=== PATIENT | male | born 1990 | race Caucasian/White ===

== ENCOUNTER 2020-03-17 18:30 | Emergency (ER) | payer SELFPAY ==
[~2020-03-17 18:30] MED LIST: Iopamidol-370 76% 500 ML 1 ML ONE
[2020-03-17 19:18] LABS: #Basophils 0.1 thou/uL (0.0-0.2); #Lymphocytes 2.1 thou/uL (1.20-3.40); #Monocytes 0.6 thou/uL (0.11-0.59); #Neutrophils 6.9 thou/uL (1.40-6.50); %Basophils 0.8 % (0.0-1.0); %Eosinophils 0.5 % (0.0-10.0); %Lymphocytes 21.6 % (21.0-51.0); %Monocytes 6.5 % (0.0-10.0); %Neutrophils 70.7 % (42.0-75.0); Hemoglobin 15.6 g/dL (14.0-18.0); Mean Corpuscular HGB CONC 34.4 g/dL (32.0-36.0); Mean Corpuscular Hemoglobin 30.1 pg (27.0-31.0); Mean Corpuscular Volume 87.3 fL (78.0-98.0); Mean Platelet Volume 7.2 fL (7.4-10.4); Platelet Count 188 thou/uL (130-400); RBC Distribution Width 12.2 % (11.5-14.5); Red Blood Cell (RBC) Count 5.18 mill/uL (4.70-6.10); White Blood Cell (WBC) Count 9.7 thou/uL (4.8-10.8)
--- NOTE | 2020-03-17 19:32 | RAD ---
PORTABLE CHEST: 03/17/20 HISTORY: Chest pain. Lung randolph are clear. Vasculature normal. Heart and mediastinum normal. IMPRESSION: No acute process. POS: AGW
[2020-03-17 19:38] LABS: ALT (SGPT) 27 U/L (8-55); AST (SGOT) 29 U/L (5-34); Albumin 4.7 g/dL (3.5-5.0); Alkaline Phosphatase 77 U/L (40-110); Anion Gap 15 mmol/L (10-20); BUN (Urea Nitrogen) 14 mg/dL (8.9-20.6); Bilirubin, Total 0.7 mg/dL (0.2-1.2); Calc. Creatinine Clearance 0 mL/min (70-130); Calcium 9.9 mg/dL (7.8-10.44); Carbon Dioxide 24 mmol/L (22-29); Chloride 100 mmol/L (98-107); Estimated GFR-MDRD Greater than 90; Glucose 128 mg/dL (70-105); Potassium 3.7 mmol/L (3.5-5.1); Protein, Total 7.7 g/dL (6.0-8.3); Sodium 135 mmol/L (136-145)
--- NOTE | 2020-03-17 19:48 | CT ---
Exam: Head CT without contrast HISTORY: Headache. Intermittent blurred vision COMPARISON: none FINDINGS: Hemorrhage: No intraparenchymal hemorrhage or extra-axial hematoma. Brain parenchyma: Cortical naidu-white matter differentiation is preserved. No mass effect or midline shift. Basilar cisterns are patent. Ventricular system: Ventricles and sulci are patent and symmetric. Calvarium: Intact. Sinuses and mastoid air cells: Adequate aeration. IMPRESSION: No acute intracranial process.
--- NOTE | 2020-03-17 20:09 | CT ---
CT CHEST, ABDOMEN AND PELVIS WITH IV CONTRAST: 03/17/20 INDICATIONS: Pain. Nausea, vomiting. Weight loss. Blurred vision. Comparison made to a prior CT abdomen and pelvis from 2014. CT CHEST: Lung randolph are clear. There is no evidence of infiltrate or effusion. No pulmonary mass or nodule. T he mediastinum is unremarkable. Osseous structures unremarkable. IMPRESSION: Unremarkable CT chest. CT ABDOMEN AND PELVIS: Liver, spleen, pancreas, stomach and duodenum unremarkable. Adrenal glands normal. Kidneys unremarkable. Small bowel loops appear normal. Appendix not identified. Radiopaque suture at the cecum suggests kelsey or appendectomy. Colon is unremarkable by CT. Aorta normal caliber. No adenopathy. No free fluid. Images through the pelvis show mildly distended bladder. Prostate unremarkable. Osseous structures un remarkable. IMPRESSION: Unremarkable CT abdomen and pelvis. POS: AGW
[2020-03-17 20:40] LABS: Bilirubin Negative (Negative); Blood, Urine Negative (Negative); Clarity Clear (Clear); Glucose, Urine (Dipstick) Normal (Negative); Ketone, Urine Negative (Negative); Leukocyte Negative Leu/uL (Negative); Nitrite Negative (Negative); Protein, Urine (Dipstick) Negative (Neg-Trace); Urobilinogen Normal mg/dL (Less than 2); pH, Urine 7.5 (5.0-9.0)
[2020-03-17 20:41] LABS: Specific Gravity, Urine 1.062 (1.002-1.036)
[2020-03-17 20:53] LABS: Amphetamine Not Detected (NotDetected); Barbiturates Screen Not Detected (NotDetected); Benzodiazepine Screen Not Detected (NotDetected); Cocaine Metabolite Screen Not Detected (NotDetected); Medtox Control Line Valid? VALID (VALID); Medtox Reader # READER 4; Methadone Not Detected (NotDetected); Methamphetamine Not Detected (NotDetected); Opiate Screen Not Detected (NotDetected); Oxycodone Screen Not Detected (NotDetected); Phencyclidine (PCP) Not Detected (NotDetected); THC/Cannabinoid Screen Detected (NotDetected); Tricyclic Screen Not Detected (NotDetected)
== END 2020-03-17 21:30 | disposition home or self-care (01) ==
LOC: ERS 18:30
DX: R63.4 Abnormal weight loss (principal); H53.8 Other visual disturbances; R51 Headache; R10.11 Right upper quadrant pain; S80.01XA Contusion of right knee, initial encounter; F12.90 Cannabis use, unspecified, uncomplicated; K21.9 Gastro-esophageal reflux disease without esophagitis; F43.10 Post-traumatic stress disorder, unspecified; F41.9 Anxiety disorder, unspecified; F32.9 Major depressive disorder, single episode, unspecified; F17.220 Nicotine dependence, chewing tobacco, uncomplicated; Z79.899 Other long term (current) drug therapy
CPT/HCPCS: 36416; 70450; 71045; 71260; 74177; 80053; 80306; 81003; 84443; 85025; Q9967

== ENCOUNTER 2020-03-26 12:34 | Emergency (ER) | payer OTHER, SELFPAY ==
[2020-03-26] MEDS ORDERED: Ketorolac Tromethamine 30 MG/ML VIAL ONE (13:44)
[2020-03-26] MEDS ORDERED: chlordiazePOXIDE HCl 25 MG CAP ONE ×2 (13:44→18:51)
[2020-03-26 14:10] LABS: #Basophils 0.2 thou/uL (0.0-0.2); #Lymphocytes 2.8 thou/uL (1.20-3.40); #Monocytes 0.5 thou/uL (0.11-0.59); #Neutrophils 3.7 thou/uL (1.40-6.50); %Basophils 2.3 % (0.0-1.0); %Eosinophils 0.3 % (0.0-10.0); %Lymphocytes 38.9 % (21.0-51.0); %Neutrophils 51.5 % (42.0-75.0); Mean Corpuscular HGB CONC 34.7 g/dL (32.0-36.0); Mean Corpuscular Hemoglobin 30.7 pg (27.0-31.0); Mean Corpuscular Volume 88.5 fL (78.0-98.0); Mean Platelet Volume 6.8 fL (7.4-10.4); Platelet Count 272 thou/uL (130-400); RBC Distribution Width 12.1 % (11.5-14.5); White Blood Cell (WBC) Count 7.2 thou/uL (4.8-10.8)
[2020-03-26 14:31] LABS: ALT (SGPT) 94 U/L (8-55); AST (SGOT) 189 U/L (5-34); Acetaminophen Less than 6.0 mcg/mL (10.0-30.0); Albumin 4.6 g/dL (3.5-5.0); Alcohol 350 mg/dL (Less than 10); Alkaline Phosphatase 89 U/L (40-110); Anion Gap 15 mmol/L (10-20); BUN (Urea Nitrogen) 9 mg/dL (8.9-20.6); Bilirubin, Total 0.3 mg/dL (0.2-1.2); Calc. Creatinine Clearance 0 mL/min (70-130); Calcium 9.2 mg/dL (7.8-10.44); Carbon Dioxide 31 mmol/L (22-29); Chloride 102 mmol/L (98-107); Estimated GFR-MDRD Greater than 90; Glucose 94 mg/dL (70-105); Potassium 3.8 mmol/L (3.5-5.1); Protein, Total 7.6 g/dL (6.0-8.3); Salicylate Less than 8.0 mg/dL (15.0-30.0); Sodium 144 mmol/L (136-145)
[2020-03-26 14:49] LABS: CK (CPK) 5113 U/L (30-200)
[2020-03-26] MEDS ORDERED: diphenhydrAMINE 50 MG/ML VIAL ONE (18:51)
[2020-03-26] MEDS ORDERED: Haloperidol Lactate 5 MG/ML VIAL ONE (19:03)
[2020-03-26 19:09] LABS: Magnesium 1.7 mg/dL (1.6-2.6)
[2020-03-26 19:23] LABS: Bilirubin Negative (Negative); Blood, Urine Negative (Negative); Clarity Clear (Clear); Glucose, Urine (Dipstick) Normal (Negative); Ketone, Urine Negative (Negative); Leukocyte Negative Leu/uL (Negative); Nitrite Negative (Negative); Protein, Urine (Dipstick) Negative (Neg-Trace); Specific Gravity, Urine 1.008 (1.002-1.036); Urobilinogen Normal mg/dL (Less than 2)
[2020-03-26 19:36] LABS: Amphetamine Not Detected (NotDetected); Barbiturates Screen Not Detected (NotDetected); Benzodiazepine Screen Not Detected (NotDetected); Cocaine Metabolite Screen Detected (NotDetected); Medtox Control Line Valid? VALID (VALID); Medtox Reader # READER 1; Methadone Not Detected (NotDetected); Methamphetamine Not Detected (NotDetected); Opiate Screen Not Detected (NotDetected); Oxycodone Screen Not Detected (NotDetected); Phencyclidine (PCP) Not Detected (NotDetected); THC/Cannabinoid Screen Detected (NotDetected); Tricyclic Screen Not Detected (NotDetected)
== END 2020-03-26 23:00 ==
LOC: ERS 12:34
DX: F10.239 Alcohol dependence with withdrawal, unspecified (principal); Y90.8 Blood alcohol level of 240 mg/100 ml or more; M62.82 Rhabdomyolysis; K21.9 Gastro-esophageal reflux disease without esophagitis; F41.9 Anxiety disorder, unspecified; F32.9 Major depressive disorder, single episode, unspecified; F43.10 Post-traumatic stress disorder, unspecified; Z79.899 Other long term (current) drug therapy
CPT/HCPCS: 36415; 80053; 80306; 80307; 81003; 82550; 83690; 83735; 84443; 85025; 93005; 96361; 96374; 96375; J1200; J1630; J1885

== ENCOUNTER 2020-06-27 22:35 | Emergency (ER) | payer OTHER, SELFPAY ==
[2020-06-28] MEDS ORDERED: Lorazepam 2 MG/ML VIAL ONE ×2 (00:55→01:05)
[2020-06-28 01:32] LABS: #Basophils 0.1 thou/uL (0.0-0.2); #Lymphocytes 2.1 thou/uL (1.20-3.40); #Monocytes 0.7 thou/uL (0.11-0.59); #Neutrophils 3.8 thou/uL (1.40-6.50); %Basophils 1.9 % (0.0-1.0); %Eosinophils 0.7 % (0.0-10.0); %Lymphocytes 30.6 % (21.0-51.0); %Monocytes 10.4 % (0.0-10.0); %Neutrophils 56.4 % (42.0-75.0); Hemoglobin 14.7 g/dL (14.0-18.0); Mean Corpuscular HGB CONC 34.5 g/dL (32.0-36.0); Mean Corpuscular Hemoglobin 30.4 pg (27.0-31.0); Mean Corpuscular Volume 88.1 fL (78.0-98.0); Mean Platelet Volume 7.4 fL (7.4-10.4); Platelet Count 149 thou/uL (130-400); RBC Distribution Width 11.9 % (11.5-14.5); Red Blood Cell (RBC) Count 4.82 mill/uL (4.70-6.10); White Blood Cell (WBC) Count 6.7 thou/uL (4.8-10.8)
[2020-06-28 01:50] LABS: ALT (SGPT) 53 U/L (8-55); AST (SGOT) 96 U/L (5-34); Acetaminophen Less than 6.0 mcg/mL (10.0-30.0); Albumin 4.3 g/dL (3.5-5.0); Alcohol Less than 10 mg/dL (Less than 10); Alkaline Phosphatase 92 U/L (40-110); Anion Gap 27 mmol/L (10-20); BUN (Urea Nitrogen) 20 mg/dL (8.9-20.6); Bilirubin, Total 0.4 mg/dL (0.2-1.2); Calc. Creatinine Clearance 0 mL/min (70-130); Calcium 9.5 mg/dL (7.8-10.44); Carbon Dioxide 16 mmol/L (22-29); Chloride 97 mmol/L (98-107); Globulin 3.8 g/dL (2.4-3.5); Glucose 121 mg/dL (70-105); Potassium 3.7 mmol/L (3.5-5.1); Protein, Total 8.1 g/dL (6.0-8.3); Salicylate Less than 8.0 mg/dL (15.0-30.0); Sodium 136 mmol/L (136-145)
[2020-06-28 02:33] LABS: Amphetamine Not Detected (NotDetected); Barbiturates Screen Not Detected (NotDetected); Benzodiazepine Screen Not Detected (NotDetected); Cocaine Metabolite Screen Not Detected (NotDetected); Medtox Control Line Valid? VALID (VALID); Medtox Reader # READER 1; Methadone Not Detected (NotDetected); Methamphetamine Not Detected (NotDetected); Opiate Screen Not Detected (NotDetected); Oxycodone Screen Not Detected (NotDetected); Phencyclidine (PCP) Not Detected (NotDetected); THC/Cannabinoid Screen Detected (NotDetected); Tricyclic Screen Not Detected (NotDetected)
--- NOTE | 2020-06-28 07:15 | CT ---
PRELIMINARY REPORT/[facility]/EMERGENCY AFTER HOURS PROCEDURE EXAM: CT Head Without Intravenous Contrast. CLINICAL HISTORY: Patient presented initially complaining of going through alcohol withdrawals. He told the triage nurs e that his last drink was at 10:00 this morning. Due to capacity issues, patient was unable to be placed in her room immediately. While in the waiting room, he had a witnessed seizure. This stopped o n its own prior to my assessment, but the patient is clearly post ictal. During my interview patient slowly regained his mental status. He however cannot tell me why he is at the hospital TECHNIQUE: Axial computed tomography images of the head/brain without intravenous contrast. COMPARISON: CT - CT CERVICAL SPINE WO CON - 06/28/2020 01:30 AM FIXTURE DESIGNER FINDINGS: BRAIN: No acute intraparenchymal hemorrhage. No mass lesion. No CT evidence for acute territorial infarct. N o midline shift or extra-axial collection. VENTRICLES: No hydrocephalus. ORBITS: The orbits are unremarkable. SINUSES AND MASTOIDS: The paranasal sinuses and mastoid air cells are clear. SOFT TISSUES: No significant facial or scalp soft tissue swelling evident. No radiopaque foreign body is seen. BONES: No acute skull fracture. IMPRESSION: No acute intracranial abnormality. ELECTRONICALLY SIGNED BY: Allen Luong M.D. Jun 28, 2020 1:43:35 AM FIXTURE DESIGNER This report is intended for review by the ordering physician only, in accordance of law. If you recei ve this report in error, please call [facility] at [phone]. FINAL REPORT Exam: Head CT without contrast HISTORY: Trauma. Alcohol withdrawal. COMPARISON: 03/17/2020 FINDINGS: Hemorrhage: No intraparenchymal hemorrhage or extra-axial hematoma. Brain parenchyma: Cortical naidu-white matter differentiation is preserved. No mass effect or midline shift. Basilar cisterns are patent. Ventricular system: Ventricles and sulci are patent and symmetric. Calvarium: Intact. Sinuses and mastoid air cells: Adequate aeration. IMPRESSION: 1. This report is in agreement with initial report by [facility]. 2. No acute intracranial process. Transcribed Date/Time: 06/28/2020 8:37 AM
--- NOTE | 2020-06-28 07:19 | CT ---
PRELIMINARY REPORT/[facility]/EMERGENCY AFTER HOURS PROCEDURE EXAM: CT Cervical Spine Without Intravenous Contrast. CLINICAL HISTORY: Patient presented initially complaining of going through alcohol withdrawals. He told the triage nurs e that his last drink was at 10:00 this morning. Due to capacity issues, patient was unable to be placed in her room immediately. While in the waiting room, he had a witnessed seizure. This stopped o n its own prior to my assessment, but the patient is clearly post ictal. During my interview patient slowly regained his mental status. He however cannot tell me why he is at the hospital TECHNIQUE: Axial computed tomography images of the cervical spine without intravenous contrast. Sagittal and cor onal reformations performed. COMPARISON: None provided. FINDINGS: BONES: No acute fracture or focal osseous lesion. Bony alignment is anatomic. DISCS / DEGENERATIVE CHANGES: No significant disc or facet degeneration. No significant central canal or neural foraminal stenosis. SOFT TISSUES: No prevertebral soft tissue swelling. No apical pneumothorax. Prominent bilateral cervical lymph nod es. IMPRESSION: 1. No acute cervical spine abnormality. 2. Prominent bilateral cervical lymph nodes which may be reactive. ELECTRONICALLY SIGNED BY: Allen Luong M.D. Jun 28, 2020 1:45:56 AM DRILLING FLUIDS SPECIALIST This report is intended for review by the ordering physician only, in accordance of law. If you recei ve this report in error, please call [facility] at [phone]. FINAL REPORT Exam: CT cervical spine without contrast HISTORY: Trauma. Pain. COMPARISON: None FINDINGS: No craniocervical dissociation. Appropriate alignment of the lateral masses of C1 and C2. Intact odon toid process Appropriate alignment of the facets. Straightening of normal cervical lordosis may be due to patient position, muscle spasm or cervical co llar. Soft tissue neck structures: No mass, or hematoma. Upper normal bilateral soft tissue neck lymph node s. No prevertebral soft tissue swelling. Upper mediastinum and lung apices: Unremarkable Central spinal canal: Neural foramina and central spinal canal are patent. Evaluation is limited by t echnique Vertebral bodies: Cervical spine vertebral body height is maintained. No fracture. IMPRESSION: 1. This report is in agreement with initial report by [facility]. 2. No cervical spine fracture. 3. Straightening of normal cervical lordosis as detailed above. Consider MRI. 4. Upper normal bilateral soft tissue neck lymph nodes. Correlate clinically. Transcribed Date/Time: 06/28/2020 8:39 AM
== END 2020-06-28 02:38 | disposition left against medical advice (07) ==
LOC: ERS 22:35
DX: F10.139 Alcohol abuse with withdrawal, unspecified (principal); R56.9 Unspecified convulsions; K21.9 Gastro-esophageal reflux disease without esophagitis
CPT/HCPCS: 36415; 70450; 72125; 80053; 80306; 80307; 85025; 93005; 96374; J2060

== ENCOUNTER 2020-09-01 13:52 | Emergency (ER) | payer OTHER, SELFPAY ==
[2020-09-01 15:15] LABS: #Basophils 0.1 thou/uL (0.0-0.2); #Lymphocytes 1.3 thou/uL (1.20-3.40); #Monocytes 0.3 thou/uL (0.11-0.59); #Neutrophils 4.5 thou/uL (1.40-6.50); %Basophils 1.2 % (0.0-1.0); %Eosinophils 0.1 % (0.0-10.0); %Lymphocytes 20.5 % (21.0-51.0); %Monocytes 5.3 % (0.0-10.0); Hemoglobin 15.5 g/dL (14.0-18.0); Mean Corpuscular HGB CONC 34.3 g/dL (32.0-36.0); Mean Corpuscular Hemoglobin 30.2 pg (27.0-31.0); Mean Corpuscular Volume 88.1 fL (78.0-98.0); Mean Platelet Volume 7.1 fL (7.4-10.4); Platelet Count 246 thou/uL (130-400); Red Blood Cell (RBC) Count 5.14 mill/uL (4.70-6.10); White Blood Cell (WBC) Count 6.2 thou/uL (4.8-10.8)
[2020-09-01] MEDS ORDERED: Multivitamins, Adult 10 ML, Thiamine HCl 100 MG, Folic Acid 1 MG in Dextrose 5 %-0.45 %... IV SCH (15:15)
[2020-09-01 15:35] LABS: ALT (SGPT) 65 U/L (8-55); AST (SGOT) 65 U/L (5-34); Albumin 4.5 g/dL (3.5-5.0); Alkaline Phosphatase 98 U/L (40-110); Anion Gap 20 mmol/L (10-20); BUN (Urea Nitrogen) 10 mg/dL (8.9-20.6); Bilirubin, Total 0.6 mg/dL (0.2-1.2); Calc. Creatinine Clearance 0 mL/min (70-130); Calcium 9.4 mg/dL (7.8-10.44); Carbon Dioxide 27 mmol/L (22-29); Chloride 96 mmol/L (98-107); Globulin 3.4 g/dL (2.4-3.5); Glucose 111 mg/dL (70-105); Lipase 73 U/L (8-78); Potassium 3.8 mmol/L (3.5-5.1); Protein, Total 7.9 g/dL (6.0-8.3); Sodium 139 mmol/L (136-145)
[2020-09-01 15:36] LABS: Acetaminophen Less than 6.0 mcg/mL (10.0-30.0); Alcohol 173 mg/dL (Less than 10); Salicylate Less than 8.0 mg/dL (15.0-30.0)
[2020-09-01] MEDS ORDERED: Ondansetron PF 4 MG/2 ML Vial ONE ×2 (15:43→20:51)
[2020-09-01] MEDS ORDERED: Lorazepam 2 MG/ML VIAL ONE ×3 (15:43→22:20)
[2020-09-01] MEDS ORDERED: Pantoprazole 40 MG VIAL ONE (15:43)
[2020-09-01 19:15] LABS: Bacteria/HPF None Seen HPF (None Seen); Bilirubin Negative (Negative); Blood, Urine Negative (Negative); Clarity Clear (Clear); Glucose, Urine (Dipstick) Normal (Negative); Ketone, Urine Negative (Negative); Leukocyte Negative Leu/uL (Negative); Nitrite Negative (Negative); Protein, Urine (Dipstick) 30 mg/dL (Neg-Trace); RBC/HPF 0-3 HPF (0-3); Specific Gravity, Urine 1.018 (1.002-1.036); Squamous Epithelial None Seen HPF (0-3); Urobilinogen Normal mg/dL (Less than 2); WBC/HPF 0-3 HPF (0-3)
[2020-09-01 19:23] LABS: Amphetamine Not Detected (NotDetected); Barbiturates Screen Not Detected (NotDetected); Benzodiazepine Screen Not Detected (NotDetected); Cocaine Metabolite Screen Not Detected (NotDetected); Medtox Control Line Valid? VALID (VALID); Medtox Reader # READER 1; Methadone Not Detected (NotDetected); Methamphetamine Not Detected (NotDetected); Opiate Screen Not Detected (NotDetected); Oxycodone Screen Not Detected (NotDetected); Phencyclidine (PCP) Not Detected (NotDetected); THC/Cannabinoid Screen Detected (NotDetected); Tricyclic Screen Not Detected (NotDetected)
[2020-09-01] MEDS ORDERED: Acetaminophen 500 MG TAB ONE (19:25)
[2020-09-01] MEDS ORDERED: Nicotine 14 MG PATCH ONE (19:25)
== END 2020-09-01 23:18 ==
LOC: ERS 13:52
DX: F10.239 Alcohol dependence with withdrawal, unspecified (principal); R11.2 Nausea with vomiting, unspecified; Y90.5 Blood alcohol level of 100-119 mg/100 ml; K21.9 Gastro-esophageal reflux disease without esophagitis; F17.290 Nicotine dependence, other tobacco product, uncomplicated
CPT/HCPCS: 80053; 80306; 80307; 81003; 81015; 83690; 83735; 85025; 93005; 96365; 96366; 96375; 96376; C9113; J2060; J2405; J3411; J7042

== ENCOUNTER 2021-01-31 12:12 | Emergency (ER) | payer OTHER ==
[2021-01-31] MEDS ORDERED: Ondansetron PF 4 MG/2 ML Vial ONE (12:50)
[2021-01-31 13:07] LABS: #Basophils 0.1 thou/uL (0.0-0.2); #Eosinphils 0.1 thou/uL (0.0-0.7); #Lymphocytes 1.3 thou/uL (1.20-3.40); #Monocytes 0.7 thou/uL (0.11-0.59); #Neutrophils 5.6 thou/uL (1.40-6.50); %Basophils 0.8 % (0.0-1.0); %Eosinophils 0.9 % (0.0-10.0); %Lymphocytes 16.9 % (21.0-51.0); %Monocytes 8.7 % (0.0-10.0); %Neutrophils 72.7 % (42.0-75.0); Hemoglobin 14.7 g/dL (14.0-18.0); Mean Corpuscular HGB CONC 35.2 g/dL (32.0-36.0); Mean Corpuscular Hemoglobin 30.5 pg (27.0-31.0); Mean Corpuscular Volume 86.6 fL (78.0-98.0); Mean Platelet Volume 7.3 fL (7.4-10.4); Platelet Count 194 thou/uL (130-400); RBC Distribution Width 12.5 % (11.5-14.5); Red Blood Cell (RBC) Count 4.81 mill/uL (4.70-6.10); White Blood Cell (WBC) Count 7.6 thou/uL (4.8-10.8)
[2021-01-31] MEDS ORDERED: Multivitamins, Adult 10 ML, Thiamine HCl 100 MG, Folic Acid 1 MG in Dextrose 5 %-0.45 %... IV SCH (13:15)
[2021-01-31] MEDS ORDERED: Lorazepam 2 MG/ML VIAL ONE ×2 (13:19→16:37)
[2021-01-31 13:28] LABS: ALT (SGPT) 174 U/L (8-55); AST (SGOT) 147 U/L (5-34); Acetaminophen Less than 6.0 mcg/mL (10.0-30.0); Albumin 4.4 g/dL (3.5-5.0); Alcohol Less than 10 mg/dL (Less than 10); Alkaline Phosphatase 88 U/L (40-110); Anion Gap 13 mmol/L (10-20); BUN (Urea Nitrogen) 10 mg/dL (8.9-20.6); Bilirubin, Total 0.6 mg/dL (0.2-1.2); CK (CPK) 656 U/L (30-200); Calc. Creatinine Clearance 0 mL/min (70-130); Calcium 9.4 mg/dL (7.8-10.44); Carbon Dioxide 25 mmol/L (22-29); Chloride 95 mmol/L (98-107); Globulin 3.2 g/dL (2.4-3.5); Glucose 170 mg/dL (70-105); Potassium 3.2 mmol/L (3.5-5.1); Protein, Total 7.6 g/dL (6.0-8.3); Salicylate Less than 8.0 mg/dL (15.0-30.0); Sodium 130 mmol/L (136-145)
[2021-01-31 14:53] LABS: Bilirubin Negative (Negative); Blood, Urine Negative (Negative); Clarity Clear (Clear); Glucose, Urine (Dipstick) Normal (Negative); Ketone, Urine Negative (Negative); Leukocyte Negative Leu/uL (Negative); Nitrite Negative (Negative); Protein, Urine (Dipstick) Negative (Neg-Trace); Specific Gravity, Urine 1.004 (1.002-1.036); Urobilinogen Normal mg/dL (Less than 2)
[2021-01-31 14:58] LABS: Amphetamine Detected (NotDetected); Barbiturates Screen Not Detected (NotDetected); Benzodiazepine Screen Not Detected (NotDetected); Cocaine Metabolite Screen Not Detected (NotDetected); Methadone Not Detected (NotDetected); Methamphetamine Detected (NotDetected); Opiate Screen Not Detected (NotDetected); Oxycodone Screen Not Detected (NotDetected); Phencyclidine (PCP) Not Detected (NotDetected); THC/Cannabinoid Screen Detected (NotDetected); Tricyclic Screen Not Detected (NotDetected)
[2021-01-31 18:43] LABS: SARS-CoV-2 NAA Rapid Test Not Detected (NotDetected)
[2021-01-31] MEDS ORDERED: Lorazepam 1 MG TAB ONE (22:06)
[2021-01-31] MEDS ORDERED: Ondansetron ODT 4 MG TAB ONE (22:06)
[2021-02-01] MEDS ORDERED: Acetaminophen 325 MG TAB ONE (01:58)
[2021-02-01] MEDS ORDERED: Lorazepam 1 MG TAB ONE ×2 (02:03→13:01)
[2021-02-01] MEDS ORDERED: Lorazepam 2 MG/ML VIAL ONE (12:58)
== END 2021-01-31 16:50 ==
LOC: ERS 12:12
DX: R45.851 Suicidal ideations (principal); F19.988 Other psychoactive substance use, unspecified with other psychoactive substance-induced disorder; F10.988 Alcohol use, unspecified with other alcohol-induced disorder; K21.9 Gastro-esophageal reflux disease without esophagitis; F32.9 Major depressive disorder, single episode, unspecified; F41.9 Anxiety disorder, unspecified; Z79.899 Other long term (current) drug therapy
CPT/HCPCS: 0240U; 36415; 80053; 80306; 80307; 81003; 82550; 84443; 85025; 96365; 96366; 96375; 96376; J2060; J2405; J3411; J7042; Q0162

== ENCOUNTER 2022-03-01 19:14 | Emergency (ER) | payer OTHER, SELFPAY ==
[2022-03-01] MEDS ORDERED: Ondansetron PF 4 MG/2 ML Vial ONE ×2 (21:48→23:31)
[2022-03-01] MEDS ORDERED: Lorazepam (BATCHED) 2 MG/ML SYR ONE (21:48)
[2022-03-01] MEDS ORDERED: Dicyclomine 20 MG/2 ML VIAL ONE (21:48)
[2022-03-01 21:50] LABS: #Eosinphils 0.1 thou/uL (0.0-0.7); #Lymphocytes 1.5 thou/uL (1.20-3.40); #Monocytes 0.3 thou/uL (0.11-0.59); #Neutrophils 4.1 thou/uL (1.40-6.50); %Basophils 0.4 % (0.0-1.0); %Eosinophils 0.9 % (0.0-10.0); %Lymphocytes 24.6 % (21.0-51.0); %Monocytes 5.1 % (0.0-10.0); Hemoglobin 17.1 g/dL (14.0-18.0); Mean Corpuscular HGB CONC 35.6 g/dL (32.0-36.0); Mean Corpuscular Volume 84.3 fL (78.0-98.0); Platelet Count 215 thou/uL (130-400); RBC Distribution Width 13.1 % (11.5-14.5); Red Blood Cell (RBC) Count 5.69 mill/uL (4.70-6.10)
[2022-03-01 22:09] LABS: ALT (SGPT) 269 U/L (8-55); AST (SGOT) 296 U/L (5-34); Acetaminophen Less than 10.0 mcg/mL (10.0-30.0); Albumin 4.2 g/dL (3.5-5.0); Alcohol 133 mg/dL (Less than 10); Alkaline Phosphatase 100 U/L (40-110); Anion Gap 19 mmol/L (10-20); BUN (Urea Nitrogen) 14 mg/dL (8.9-20.6); Bilirubin, Total 0.9 mg/dL (0.2-1.2); Calc. Creatinine Clearance 0 mL/min (70-130); Calcium 9.2 mg/dL (7.8-10.44); Carbon Dioxide 25 mmol/L (22-29); Chloride 103 mmol/L (98-107); Estimated GFR 78; Globulin 3.2 g/dL (2.4-3.5); Glucose 99 mg/dL (70-105); Potassium 4.3 mmol/L (3.5-5.1); Protein, Total 7.4 g/dL (6.0-8.3); Salicylate Less than 8.0 mg/dL (15.0-30.0); Sodium 143 mmol/L (136-145)
[2022-03-01 22:25] LABS: SARS-CoV-2 NAA Rapid Test Not Detected (NotDetected)
[2022-03-01 23:31] LABS: Amphetamine Not Detected (NotDetected); Barbiturates Screen Not Detected (NotDetected); Benzodiazepine Screen Detected (NotDetected); Cocaine Metabolite Screen Not Detected (NotDetected); Methadone Not Detected (NotDetected); Methamphetamine Not Detected (NotDetected); Opiate Screen Not Detected (NotDetected); Oxycodone Screen Not Detected (NotDetected); Phencyclidine (PCP) Not Detected (NotDetected); THC/Cannabinoid Screen Detected (NotDetected); Tricyclic Screen Not Detected (NotDetected)
[2022-03-01] MEDS ORDERED: Lorazepam 1 MG TAB ONE (23:44)
== END 2022-03-02 02:15 | disposition short-term general hospital (02) ==
LOC: ERS 19:14
DX: F10.20 Alcohol dependence, uncomplicated (principal); Z20.822 Contact with and (suspected) exposure to COVID-19; Y90.6 Blood alcohol level of 120-199 mg/100 ml; K21.9 Gastro-esophageal reflux disease without esophagitis; Z79.899 Other long term (current) drug therapy
CPT/HCPCS: 80053; 80306; 80307; 83690; 85025; 93005; 96372; 96374; 96375; 96376; J2060; J2405; U0002

== ENCOUNTER 2022-08-18 09:52 | Emergency (ER) | payer OTHER ==
[2022-08-18] MEDS ORDERED: LORazepam 2 MG/ML SYR.(CARPUJECT) ONE ×2 (10:08→10:35)
[2022-08-18] MEDS ORDERED: chlordiazePOXIDE HCl 25 MG CAP PO SCH (10:15)
[2022-08-18] MEDS ORDERED: Ondansetron PF 4 MG/2 ML Vial ONE (10:36)
[2022-08-18 10:54] LABS: #Basophils 0.1 thou/uL (0.0-0.2); #Monocytes 0.4 thou/uL (0.11-0.59); #Neutrophils 3.5 thou/uL (1.40-6.50); %Eosinophils 0.5 % (0.0-10.0); %Lymphocytes 33.1 % (21.0-51.0); %Monocytes 6.5 % (0.0-10.0); %Neutrophils 58.9 % (42.0-75.0); Hemoglobin 16.2 g/dL (14.0-18.0); Mean Corpuscular HGB CONC 33.9 g/dL (32.0-36.0); Mean Corpuscular Hemoglobin 29.7 pg (27.0-31.0); Mean Corpuscular Volume 87.6 fl (78.0-98.0); Mean Platelet Volume 6.9 fL (7.4-10.4); Platelet Count 295 10x3/uL (130-400); RBC Distribution Width 13.2 % (11.5-14.5); Red Blood Cell (RBC) Count 5.47 mill/uL (4.70-6.10); White Blood Cell (WBC) Count 5.9 10x3/uL (4.8-10.8)
[2022-08-18 11:06] LABS: PTT 27.5 sec (22.9-36.1); Prothrombin Time 13.1 sec (12.0-14.7)
[2022-08-18 11:15] LABS: Acetaminophen Less than 10.0 mcg/mL (10.0-30.0); Alcohol 217 mg/dL (Less than 10); Salicylate Less than 8.0 mg/dL (15.0-30.0)
[2022-08-18 11:17] LABS: ALT (SGPT) 17 U/L (8-55); AST (SGOT) 24 U/L (5-34); Albumin 4.5 g/dL (3.5-5.0); Alkaline Phosphatase 86 U/L (40-110); Anion Gap 18 mmol/L (10-20); BUN (Urea Nitrogen) 17 mg/dL (8.9-20.6); Bilirubin, Total 0.5 mg/dL (0.2-1.2); Calc. Creatinine Clearance 0 mL/min (70-130); Calcium 9.7 mg/dL (7.8-10.44); Carbon Dioxide 27 mmol/L (22-29); Chloride 101 mmol/L (98-107); Estimated GFR 119; Globulin 3.3 g/dL (2.4-3.5); Glucose 112 mg/dL (70-105); Lipase 48 U/L (8-78); Potassium 3.8 mmol/L (3.5-5.1); Protein, Total 7.8 g/dL (6.0-8.3); Sodium 142 mmol/L (136-145)
== END 2022-08-18 14:18 | disposition home or self-care (01) ==
LOC: ERS 09:52
DX: F10.239 Alcohol dependence with withdrawal, unspecified (principal); R11.2 Nausea with vomiting, unspecified; K21.9 Gastro-esophageal reflux disease without esophagitis
CPT/HCPCS: 80053; 80307; 83690; 85025; 85610; 85730; 93005; 94760; 96361; 96374; 96375; J2060; J2405

== ENCOUNTER 2023-08-18 08:16 | Emergency (ER) | payer OTHER ==
[2023-08-18 08:54] LABS: #Basophils 0.1 thou/uL (0.0-0.2); #Eosinphils 0.1 thou/uL (0.0-0.7); #Monocytes 0.6 thou/uL (0.11-0.59); #Neutrophils 6.1 thou/uL (1.40-6.50); %Basophils 0.5 % (0.0-1.0); %Lymphocytes 26.2 % (21.0-51.0); %Monocytes 6.1 % (0.0-10.0); %Neutrophils 65.9 % (42.0-75.0); Hematocrit 47.2 % (42.0-52.0); Hemoglobin 16.5 g/dL (14.0-18.0); Mean Corpuscular Hemoglobin 28.6 pg (27.0-31.0); Mean Corpuscular Volume 81.9 fl (78.0-98.0); Mean Platelet Volume 9.7 fL (7.4-10.4); Platelet Count 264 10x3/uL (130-400); RBC Distribution Width 13.9 % (11.5-14.5); Red Blood Cell (RBC) Count 5.76 mill/uL (4.70-6.10); White Blood Cell (WBC) Count 9.3 10x3/uL (4.8-10.8)
[2023-08-18] MEDS ORDERED: Ondansetron PF 4 MG/2 ML Vial ONE (09:04)
[2023-08-18] MEDS ORDERED: Thiamine HCl 200 MG/2 ML VIAL ONE (09:12)
[2023-08-18] MEDS ORDERED: Multivit, Therapeutic 1 TAB ONE (09:12)
[2023-08-18 09:14] LABS: Bacteria/HPF None Seen HPF (None Seen); Bilirubin Negative (Negative); Blood, Urine Negative (Negative); CAUTI Indications for Culture Dysuria,urgency,freq; Clarity Clear (Clear); Glucose, Urine (Dipstick) Normal (Negative); Ketone, Urine Negative (Negative); Leukocyte Negative Leu/uL (Negative); Nitrite Negative (Negative); Protein, Urine (Dipstick) 20 mg/dL (Neg-Trace); RBC/HPF 0-3 HPF (0-3); Specific Gravity, Urine 1.021 (1.002-1.036); Squamous Epithelial None Seen HPF (0-3); Urobilinogen Normal mg/dL (Less than 2); WBC/HPF 0-3 HPF (0-3); pH, Urine 7.5 (5.0-9.0)
[2023-08-18 09:15] LABS: Urine Culture Reflex No No
[2023-08-18 09:16] LABS: ALT (SGPT) 14 U/L (8-55); AST (SGOT) 19 U/L (5-34); Albumin 4.8 g/dL (3.5-5.0); Alkaline Phosphatase 90 U/L (40-110); Anion Gap 15 mmol/L (10-20); BUN (Urea Nitrogen) 11 mg/dL (8.9-20.6); Bilirubin, Total 0.5 mg/dL (0.2-1.2); Calc. Creatinine Clearance 0 mL/min (70-130); Calcium 9.9 mg/dL (7.8-10.44); Carbon Dioxide 23 mmol/L (22-29); Chloride 106 mmol/L (98-107); Estimated GFR 98; Glucose 104 mg/dL (70-105); Lipase 33 U/L (8-78); Protein, Total 7.8 g/dL (6.0-8.3); Sodium 140 mmol/L (136-145)
[2023-08-18 09:18] LABS: Acetaminophen Less than 10 mcg/mL (10.0-30.0); Alcohol Less than 10.0 mg/dL (Less than 10); Salicylate Less than 8.0 mg/dL (15.0-30.0)
[2023-08-18 09:22] LABS: Troponin I Less than 0.010 ng/mL (< 0.028)
[2023-08-18 09:25] LABS: Amphetamine Not Detected (NotDetected); Barbiturates Screen Not Detected (NotDetected); Benzodiazepine Screen Not Detected (NotDetected); Cocaine Metabolite Screen Not Detected (NotDetected); Methadone Not Detected (NotDetected); Methamphetamine Not Detected (NotDetected); Opiate Screen Not Detected (NotDetected); Oxycodone Screen Not Detected (NotDetected); Phencyclidine (PCP) Not Detected (NotDetected); THC/Cannabinoid Screen Detected (NotDetected); Tricyclic Screen Not Detected (NotDetected)
[2023-08-18 09:28] LABS: Magnesium 1.7 mg/dL (1.6-2.6)
[2023-08-18] MEDS ORDERED: SODIUM CHLORIDE 0.9% IVPB SCH (09:30)
[2023-08-18] MEDS ORDERED: PHENOBARBITAL SODIUM IVPB SCH (09:30)
[2023-08-18 09:44] LABS: SARS-CoV-2 NAA Rapid Test Not Detected (NotDetected)
[2023-08-18] MEDS ORDERED: chlordiazePOXIDE HCl 25 MG CAP ONE (12:13)
== END 2023-08-18 12:24 | disposition home or self-care (01) ==
LOC: ERS 08:16
DX: F10.139 Alcohol abuse with withdrawal, unspecified (principal); Y90.0 Blood alcohol level of less than 20 mg/100 ml; R56.9 Unspecified convulsions; K92.9 Disease of digestive system, unspecified; Z55.6 Problems related to health literacy
CPT/HCPCS: 36415; 80053; 80306; 80307; 81001; 83690; 83735; 84484; 85025; 93005; 96361; 96365; 96375; J2405; J2560; J3411; J3490